=== PATIENT | female | born 1975 | race Hispanic/Latino ===

== ENCOUNTER 2017-10-09 13:13 | Emergency (ER) | payer MEDICAID ==
[2017-10-09] MEDS ORDERED: TORADOL IM ONE (17:51)
[2017-10-09] MEDS ORDERED: ULTRAM PO ONE (17:51)
[2017-10-09 18:08] LABS: Basophils # (Auto) 0.1 K/mm3 (0.0-0.1); Basophils % (Auto) 0.9 % (0.0-1.8); Eosinophils # (Auto) 0.2 K/mm3 (0.0-0.4); Eosinophils % (Auto) 2.1 % (0.0-4.3); Hematocrit 40.2 % (30.3-42.9); Hemoglobin 13.4 gm/dl (10.1-14.3); Lymphocytes # (Auto) 3.3 K/mm3 (1.2-5.4); Lymphocytes % (Auto) 30.7 % (13.4-35.0); Mean Corpuscular HGB Conc 33 % (30-34); Mean Corpuscular Hemoglobin 32 pg (28-32); Mean Corpuscular Volume 96 fl (79-97); Monocytes # (Auto) 0.8 K/mm3 (0.0-0.8); Monocytes % (Auto) 7.6 % (0.0-7.3); Platelet Count 351 K/mm3 (140-440); Red Cell Distribution Width 13.2 % (13.2-15.2)
[2017-10-09 18:25] LABS: Alanine Aminotransferase 9 units/L (7-56); Albumin 4.2 g/dL (3.9-5); BUN/Creatinine Ratio 11; Blood Urea Nitrogen 9 mg/dL (7-17); Hemolysis Index 5; Lipase 47 units/L (13-60)
--- NOTE | 2017-10-09 18:26 | Emergency Department Report ---
HPI - General Chief Complaint: Pain General Time Seen by Provider: 10/09/17 16:43 - HPI HPI: The patient is a 42-year-old female with a history of bipolar disorder who presents for evaluation of abdominal pain and generalized pain. The patient reports abdominal pain generalized myalgias for the past 2 months. She states that she has experienced a constant worsening pain for the past one day to the abdomen, cramping and sharp in quality, 10/10 severity, exacerbated with rolling onto her right hand side. She has alsogeneralized myalgias in the bilateral shoulders and upper back. The patient denies fever, trauma to the shoulders, back, or abdomen, chills, night sweats, chest pain, dyspnea, vomiting , hematemesis, diarrhea, blood in the stool, dark tarry stool, dysuria, hematuria, flank pain, genital discharge, inability to pass flatus. ED Past Medical Hx - Past Medical History Previous Medical History?: Yes Additional medical history: Bi polar/asia, anxiety - Social History Smoking Status: Current Every Day Smoker Substance Use Type: None ED Review of Systems ROS: Stated complaint: BODY PAIN Other details as noted in HPI Constitutional: denies: fever ENT: denies: throat or neck pain Respiratory: denies: cough, shortness of breath Cardiovascular: denies: chest pain Endocrine: denies unexplained weight loss or gain Gastrointestinal: REPORTS abdominal pain, nausea Genitourinary: denies: dysuria Musculoskeletal: reports shoulder and upper back pain denies: leg swelling Skin: denies: rash Neurological: denies: headache Hematological/Lymphatic: denies: easy bleeding or easy bruising Psych: denies sadness or hopelessness Physical Exam - Physical Exam Vital Signs: Vital Signs 10/09/17 10/09/17 13:30 17:17 Temperature 98.3 F 98.3 F Pulse Rate 87 77 Respiratory 20 18 Rate Blood Pressure 125/93 Blood Pressure 123/79 [Left] O2 Sat by Pulse 97 97 Oximetry Physical Exam: General: well-nourished, well-developed, no acute distress Head: Normocephalic, atraumatic Eyes: normal sclera ENT: Mucous membranes are pale and dry Neck: No neck stiffness, no cervical adenopathy Respiratory: Breath sounds equal bilaterally, no wheezing, rales, or rhonchi Cardio: S1 and S2 present, no murmurs, rubs, gallops, capillary refill is delayed Abdomen: Normoactive bowel sounds, soft abdomen, epigastric and periorbital tenderness to palpation present, no rigidity, no guarding or rebound tenderness Chest WALL/Back: No tenderness to palpation of the chest wall, no CVA tenderness with percussion Musc: Tense palpation present bilateral caudal medial trapezius, upper thoracic paraspinal musculature, no midline cervical or thoracic midline bony tenderness over spinous process, no sensation motor deficit in the arms or legs bilaterally , reflexes 2+ and symmetrical DTR testing, process intact in the bilateral distal extremities Skin: No rash Neuro: no facial drooping, normal speech Psych: Normal affect ED Course Vital Signs 10/09/17 10/09/17 13:30 17:17 Temperature 98.3 F 98.3 F Pulse Rate 87 77 Respiratory 20 18 Rate Blood Pressure 125/93 Blood Pressure 123/79 [Left] O2 Sat by Pulse 97 97 Oximetry ED Medical Decision Making - Lab Data Result diagrams: 10/09/17 17:54 10/09/17 17:54 - Medical Decision Making The patient was seen and examined by myself. The patient is placed on a security monitor and continuous pulse ox. On initial evaluation, the patient was found to be in no distress. Evaluation orders are placed. The patient given IM pain medicine. Lab results were non-concerning including WBC, hemoglobin, hematocrit, electrolytes, renal function, LFTs, lipase, and urinalysis. The patient was reevaluated and reported that their symptoms were markedly improved. The patient is stable for discharge with outpatient follow-up. The patient is given follow-up and return instructions. The patient expressed understanding and agreed with the plan. The patient is discharged in stable condition. Critical care attestation.: If time is entered above; I have spent that time in minutes in the direct care of this critically ill patient, excluding procedure time. ED Disposition Clinical Impression: Abdominal pain, acute, periumbilical, Myalgia Disposition: TO HOME OR SELFCARE Is pt being admited?: No Does the pt Need Aspirin: No Condition: Stable Instructions: Musculoskeletal Pain (ED), Acute Abdominal Pain (ED) Referrals: PRIMARY CARE, [Primary Care Provider] - 3-5 Days Time of Disposition: 19:59
[2017-10-09 20:10] VITALS: BP 122/92
[2017-10-09] MEDS ORDERED: MORPHINE IM ONE ×2 (20:19→21:00)
[2017-10-09] MEDS ORDERED: ZOFRAN ODT PO ONE (20:20)
== END 2017-10-09 20:37 | disposition home or self-care (01) ==
LOC: ED 13:13
DX: R10.33 Periumbilical pain (principal); M79.1 Myalgia; F17.200 Nicotine dependence, unspecified, uncomplicated
CPT/HCPCS: 36415; 80053; 82550; 83690; 84703; 85025; 96372; 99284; G0480; J1885; J2270; 80320; Q0162